=== PATIENT | female | born 1995 | race Caucasian/White ===

== ENCOUNTER → 2020-06-17 12:31 | Outpatient (CLI) | payer BC, SELFPAY ==
[2020-06-17 10:28] VITALS: BMI 27.5
[2020-06-19 03:07] LABS: Chlamydia By Nucleic Acid AMP Negative (Negative)
[2020-06-19 08:42] LABS: Gonococcus By Nucleic Acid AMP Negative (Negative)
[2020-06-19 20:49] LABS: HPV Reflexed? NOT INDICATED
== END ==
PROVIDERS: PCP Family Medicine; Referring Provider Nurse Practitioner Women's Health; Visit Provider Nurse Practitioner Women's Health
DX: N94.9 Unspecified condition associated with female genital organs and menstrual cycle (principal); Z12.4 Encounter for screening for malignant neoplasm of cervix; Z11.3 Encounter for screening for infections with a predominantly sexual mode of transmission
CPT/HCPCS: 87070; 87205; 87491; 87591; 88175; G0145

== ENCOUNTER → 2024-01-01 | Outpatient (CLI) | payer MEDICAID, SELFPAY ==
[2024-01-01 15:55] LABS: Absolute Lymphocyte Count 2.01 X10^3/uL (0.83-4.51); Absolute Neutrophil Count 9.9 X10^3/uL (2.0-7.7); Basophil# 0.03 X10^3/uL; Basophil% 0.2 % (0-1); Eosinophil# 0.11 X10^3/uL; Eosinophils% 0.9 % (0-5); Hematocrit 34.1 % (37-47); Hemoglobin 11.2 g/dL (12.0-15.0); Lymphocyte # 2.01 X10^3/ul (0.83-4.51); Lymphocyte % 15.6 % (19-41); Mean Corp Hgb Conc 32.8 g/dL (32-36); Mean Corpuscular Volume 82.2 fL (81-99); Mean Platelet Vol. 10.6 fl (6.2-12.0); Monocyte# 0.81 X10^3/uL; Monocyte% 6.3 % (0-10); NRBC Flagged by Analyzer 0 % (0-5); Neutrophil # 9.85 X10^3/uL (2.7-7.7); Neutrophil % 76.4 % (47-70); Platelet Count 279 K/mm3 (150-450); RBC Distribution Width CV 12.8 % (11.6-14.6); RBC Distribution Width SD 38.1 fl (35.1-43.9); Red Blood Count 4.15 M/mm3 (4.2-5.4); White Blood Count 12.9 K/mm3 (4.4-11.0)
[2024-01-01 16:23] LABS: ALB/GLOB Ratio 0.7 RATIO (0.9-2.4); AST(SGOT) 13 U/L (15-37); Alanine Aminotransfer ALT/SGPT 20 U/L (13-56); Albumin, Serum 2.7 g/dL (3.2-5.0); Alkaline Phosphatase 67 U/L (45-117); Anion Gap 14 (5-15); BUN 7 mg/dL (7-18); BUN/Creat Ratio 14.7 RATIO (10-20); Calcium,Total 9.1 mg/dL (8.5-10.1); Chloride 106 mmol/L (98-107); Creatinine, Serum 0.48 mg/dL (0.55-1.02); EST Glomerular Filtration Rate 163 mL/min (>60); Est Glom Filt Rate - Afr Amer 198 mL/min (>60); Glucose 114 mg/dL (74-106); Potassium 3.3 mmol/L (3.5-5.1); Protein, Total 6.7 g/dL (6.4-8.2); Sodium Level 137 mmol/L (136-145); Uric Acid 3.7 mg/dL (2.6-6.0)
[2024-01-01 17:16] LABS: Protein, Urine (Random) 6.2 mg/dL (<11.9); Protein:Creat Ratio 302 mg/g CRE (0-200)
== END | disposition home or self-care (01) ==
LOC: BWCLAB 15:29
PROVIDERS: PCP Family Medicine; Referring Provider Advanced Practice Midwife; Visit Provider Advanced Practice Midwife
DX: O13.9 Gestational [pregnancy-induced] hypertension without significant proteinuria, unspecified trimester (principal)
CPT/HCPCS: 36415; 80053; 82570; 84156; 84550; 85025

== ENCOUNTER → 2024-01-02 | Outpatient (CLI) | payer MEDICAID, SELFPAY | END | disposition home or self-care (01) | LOC: US 10:12 | PROVIDERS: PCP Family Medicine; Referring Provider Obstetrics & Gynecology; Visit Provider Obstetrics & Gynecology | DX: O13.9 Gestational [pregnancy-induced] hypertension without significant proteinuria, unspecified trimester (principal); O09.90 Supervision of high risk pregnancy, unspecified, unspecified trimester | CPT/HCPCS: 36415; 76816; 80053; 82570; 84156; 85025 ==

== ENCOUNTER → 2024-01-02 | Outpatient (CLI) | payer MEDICAID, SELFPAY ==
[2024-01-02 10:20] LABS: Absolute Lymphocyte Count 1.95 X10^3/uL (0.83-4.51); Absolute Neutrophil Count 9.3 X10^3/uL (2.0-7.7); Basophil# 0.03 X10^3/uL; Basophil% 0.3 % (0-1); Eosinophil# 0.13 X10^3/uL; Eosinophils% 1.1 % (0-5); Hemoglobin 11.2 g/dL (12.0-15.0); Lymphocyte # 1.95 X10^3/ul (0.83-4.51); Lymphocyte % 16.3 % (19-41); Mean Corpuscular Hgb 26.6 pg (27.0-32.0); Mean Corpuscular Volume 83.1 fL (81-99); Mean Platelet Vol. 10.2 fl (6.2-12.0); Monocyte% 4.2 % (0-10); NRBC Flagged by Analyzer 0 % (0-5); Neutrophil # 9.28 X10^3/uL (2.7-7.7); Neutrophil % 77.5 % (47-70); Platelet Count 270 K/mm3 (150-450); RBC Distribution Width CV 12.7 % (11.6-14.6); RBC Distribution Width SD 38.5 fl (35.1-43.9); Red Blood Count 4.21 M/mm3 (4.2-5.4)
[2024-01-02 10:49] LABS: ALB/GLOB Ratio 0.7 RATIO (0.9-2.4); AST(SGOT) 10 U/L (15-37); Alanine Aminotransfer ALT/SGPT 20 U/L (13-56); Albumin, Serum 2.7 g/dL (3.2-5.0); Alkaline Phosphatase 68 U/L (45-117); Anion Gap 8 (5-15); BUN 4 mg/dL (7-18); BUN/Creat Ratio 7.1 RATIO (10-20); Calcium,Total 8.8 mg/dL (8.5-10.1); Chloride 106 mmol/L (98-107); Creatinine, Serum 0.56 mg/dL (0.55-1.02); EST Glomerular Filtration Rate 134 mL/min (>60); Est Glom Filt Rate - Afr Amer 162 mL/min (>60); Globulin 4.1 g/dL (2.2-4.2); Glucose 143 mg/dL (74-106); Potassium 3.2 mmol/L (3.5-5.1); Protein, Total 6.8 g/dL (6.4-8.2); Sodium Level 137 mmol/L (136-145)
[2024-01-02 11:02] LABS: Protein, Urine (Random) 11.4 mg/dL (<11.9); Protein:Creat Ratio 253 mg/g CRE (0-200)
== END | disposition home or self-care (01) ==
LOC: BWCLAB 10:00
PROVIDERS: PCP Family Medicine; Referring Provider Obstetrics & Gynecology; Visit Provider Obstetrics & Gynecology
DX: O13.9 Gestational [pregnancy-induced] hypertension without significant proteinuria, unspecified trimester (principal)
CPT/HCPCS: 36415; 80053; 82570; 84156; 85025

== ENCOUNTER → 2024-01-15 | Outpatient (CLI) | payer MEDICAID, SELFPAY ==
[2024-01-15 13:01] LABS: Creatinine, Serum 0.44 mg/dL (0.55-1.02); EST Glomerular Filtration Rate 179 mL/min (>60); Est Glom Filt Rate - Afr Amer 217 mL/min (>60)
[2024-01-15 13:02] LABS: 24HR. UA Prot. Total Volume 3500 mL; Creat.Clear Total Volume 3500 mL; Creatinine Clearance 175 ml/min (100-200); Creatinine Serum Creat 0.4 mg/dL (0.6-1.0); Creatinine Urine 31.5 mg/dL (NO RANGE EST.); EST Glomerular Filtration Rate 179 mL/min (>60); Est Glom Filt Rate - Afr Amer 217 mL/min (>60); Urine Protein (24 Hour) 8.4 mg/dL (<11.9)
== END | disposition home or self-care (01) ==
LOC: LABSPEC 10:29
PROVIDERS: Obstetrics & Gynecology; PCP Family Medicine; Referring Provider Obstetrics & Gynecology; Visit Provider Obstetrics & Gynecology
DX: O13.9 Gestational [pregnancy-induced] hypertension without significant proteinuria, unspecified trimester (principal); Z3A.00 Weeks of gestation of pregnancy not specified
CPT/HCPCS: 81050; 82565; 82570; 82575; 84156

== ENCOUNTER → 2024-02-01 | Outpatient (CLI) | payer MEDICAID, SELFPAY ==
[2024-02-01 17:05] LABS: Absolute Lymphocyte Count 1.91 X10^3/uL (0.83-4.51); Absolute Neutrophil Count 8.2 X10^3/uL (2.0-7.7); Basophil# 0.03 X10^3/uL; Basophil% 0.3 % (0-1); Eosinophil# 0.12 X10^3/uL; Eosinophils% 1.1 % (0-5); Hematocrit 35.4 % (37-47); Hemoglobin 11.3 g/dL (12.0-15.0); Lymphocyte # 1.91 X10^3/ul (0.83-4.51); Lymphocyte % 17.3 % (19-41); Mean Corp Hgb Conc 31.9 g/dL (32-36); Mean Corpuscular Hgb 25.9 pg (27.0-32.0); Mean Corpuscular Volume 81.2 fL (81-99); Monocyte# 0.69 X10^3/uL; Monocyte% 6.2 % (0-10); NRBC Flagged by Analyzer 0 % (0-5); Neutrophil # 8.23 X10^3/uL (2.7-7.7); Neutrophil % 74.5 % (47-70); Platelet Count 276 K/mm3 (150-450); RBC Distribution Width CV 13.1 % (11.6-14.6); RBC Distribution Width SD 38.7 fl (35.1-43.9); Red Blood Count 4.36 M/mm3 (4.2-5.4); White Blood Count 11.1 K/mm3 (4.4-11.0)
[2024-02-01 17:15] LABS: Glucose Challenge Gest 1H 50g 118 mg/dL (70-140)
[2024-02-01 17:51] LABS: HIV - WCH Non-Reactive (Nonreactive); Syphilis Antibodies Non-reactive
== END | disposition home or self-care (01) ==
LOC: BWCLAB 14:05
PROVIDERS: PCP Family Medicine; Referring Provider Obstetrics & Gynecology; Visit Provider Obstetrics & Gynecology
DX: O26.899 Other specified pregnancy related conditions, unspecified trimester (principal); Z67.91 Unspecified blood type, Rh negative; Z13.1 Encounter for screening for diabetes mellitus; Z3A.00 Weeks of gestation of pregnancy not specified
CPT/HCPCS: 36415; 82950; 85025; 86703; 86780; 86850; 86900; 86901

== ENCOUNTER → 2024-02-20 | Outpatient (CLI) | payer MEDICAID, SELFPAY ==
--- NOTE | 2024-02-20 13:45 | ECHOD_ITS ---
Reason For Study: HYPERTENSION Procedure This was a 2D Doppler, Color Flow transthoracic echocardiogram. Myocardial strain analysis was performed in this exam to aid in the assessment of cardiac function. Exam performed in department. Left Ventricle Normal LV size. Left ventricular systolic function is normal. The left ventricular ejection fraction is 60 %. No regional wall motion abnormalities noted. Right Ventricle Normal RV size. Normal systolic function. Atria Normal left atrium. Normal right atrium. Mitral Valve Normal mitral valve. Tricuspid Valve Normal tricuspid valve. Mild tricuspid valve insufficiency. Pulmonary artery systolic pressure is 25 mmHg. Aortic Valve Trisinus/trileaflet aortic valve. Pulmonic Valve Normal pulmonic valve. Great Vessels Normal aortic root. The pulmonary artery is normal size. Inferior vena cava collapse with respiration. Pericardium/Pleural No pericardial effusion. MMode/2D Measurements & Calculations LVIDd: 4.3 cm IVSd: 0.88 cm LVOT diam: 1.9 cm LVIDs: 3.0 cm LVPWd: 0.89 cm LVOT area: 2.7 cm2 RVDd: 3.2 cm FS: 31.5 % asc Aorta Diam: 2.4 cm LAV(MOD-bp): 40.4 ml LVAd ap4: 25.6 cm2 LAV(MOD-bp) Indexed: 21.6 ml/m2 LVLd ap4: 8.3 cm LAV(MOD-sp2): 48.1 ml EDV(MOD-sp4): 64.3 ml LAV(MOD-sp4): 33.0 ml EDV(sp4-el): 67.5 ml LVAs ap4: 12.7 cm2 LVLs ap4: 6.5 cm ESV(MOD-sp4): 21.3 ml ESV(sp4-el): 21.2 ml EF(MOD-sp4): 66.8 % EF(sp4-el): 68.6 % LVAd ap2: 26.6 cm2 SV(MOD-sp4): 42.9 ml SV(MOD-sp2): 44.4 ml LVLd ap2: 8.2 cm SI(MOD-sp4): 23.0 ml/m2 SI(MOD-sp2): 23.8 ml/m2 EDV(MOD-sp2): 70.2 ml EDV(sp2-el): 72.9 ml LVAs ap2: 14.1 cm2 LVLs ap2: 6.3 cm ESV(MOD-sp2): 25.8 ml ESV(sp2-el): 26.5 ml EF(MOD-sp2): 63.2 % SV(sp4-el): 46.3 ml Ao sinus diam: 2.[address] Junction: 2.1 cm LA dimension(2D): 3.7 cm LA A4 area: 14.1 cm2 RA A4 area: 8.8 cm2 TAPSE: 1.8 cm Time Measurements MV dec time: 0.16 sec Doppler Measurements & Calculations MV E max madhu: 74.3 cm/sec Lat Peak E' Madhu: 17.2 cm/sec Med Peak E' Madhu: 11.2 cm/sec MV A max madhu: 84.3 cm/sec E/E' lat: 4.3 E/E' med: 6.7 MV E/A: 0.88 MV dec slope: 469.6 cm/sec2 Ao V2 max: 191.0 cm/sec LV V1 max: 147.4 cm/sec Ao max P.6 mmHg LV V1 max P.7 mmHg Ao V2 mean: 132.5 cm/sec LV V1 mean P.1 mmHg Ao mean P.8 mmHg LV V1 mean: 108.9 cm/sec Ao V2 VTI: 27.0 cm LV V1 VTI: 22.2 cm AV (velocity ratio): 0.82 KARLA(I,D): 2.2 cm2 KARLA(V,D): 2.1 cm2 SV(LVOT): 60.1 ml PA V2 max: 118.0 cm/sec TR max madhu: 238.6 cm/sec TR max P.8 mmHg ECHO/Echo Complete Interpretation Summary Normal LV size. Left ventricular systolic function is normal. The left ventricular ejection fraction is 60 %. Structurally normal valves. Ordering Physician: Ben Tejeda Referring Physician: Ben Tejeda MD Performed By: Tiffany Bird GARY
== END | disposition home or self-care (01) ==
LOC: CVS 13:44
PROVIDERS: PCP Family Medicine; Referring Provider Internal Medicine Cardiovascular Disease; Visit Provider Internal Medicine Cardiovascular Disease
DX: O10.919 Unspecified pre-existing hypertension complicating pregnancy, unspecified trimester (principal); Z3A.00 Weeks of gestation of pregnancy not specified
CPT/HCPCS: 93306

== ENCOUNTER 2024-03-04 20:05 | Outpatient (CLI) | payer MEDICAID, SELFPAY ==
[2024-03-04 20:18] VITALS: BMI 38.5
[2024-03-04 20:23] VITALS: PULSE 111; RESP 16; TEMP 37; O2SAT 98
[2024-03-04 20:26] VITALS: BP 138/85; PULSE 103
--- NOTE | 2024-03-04 22:54 | OB.TRI.PN_ITS ---
Progress Notes Date of Service: 03/04/24 Progress Note: Patient presents for triage evaluation secondary to decreased movement at 32.6 weeks FHT: 145 Moderate variability reactive no decelerations category I tracing [employer]: no Contractions Assessment and plan: movement noted by patient and nursing, Reactive NST, reassuring maternal and status patient discharged to home to follow-up as scheduled. See problem list details for additional plan information. Charges/Coding Multi Select Codes Urinary/Genital Urinary/Genital CPT Codes: 06017-72 non-stress test Interp Assessment & Plan (1) Decreased movement: COMMENT: reactive NST, FM noted on unit by pt, d/c home (2) Abnormal EKG: COMMENT: normal echo (3) Chronic hypertension affecting : COMMENT: on nifedipine (4) Obesity affecting : COMMENT: BMI 31.2- growth q 4 weeks and twice weekly testing (5) Supervision of high-risk : COMMENT: , ROSE 04/23/24, PC: Guillermo, : Johnathan (6) : QUALIFIERS: Weeks of gestation: 32 weeks Qualified Code(s): Z3A.32 - 32 weeks gestation of COMMENT: normal anatomy, NT normal, AFP normal, Discussed genetic/carrier testing - declines (7) Rh negative status during : COMMENT: A-, Will need Rhogam at 28wks (8) H/O pre-eclampsia in prior , currently : COMMENT: Taking ASA 81mg (9) Anxiety: (10) H/O section: COMMENT: x1, Desires rpt csec with sterilization. RLTCS BS scheduled for 04/04 @ 7:15 with SM (11) Migraine without aura: QUALIFIERS: Status migrainosus presence: without status migrainosus Intractability: not intractable Qualified Code(s): G43.009 - Migraine without aura, not intractable, without status migrainosus
== END 2024-03-04 21:05 | disposition home or self-care (01) ==
LOC: WPOUT 20:09 → WP 20:10
PROVIDERS: PCP Family Medicine; Visit Provider Advanced Practice Midwife
DX: O36.8130 Decreased fetal movements, third trimester, not applicable or unspecified (principal); Z3A.32 32 weeks gestation of pregnancy; R94.31 Abnormal electrocardiogram [ECG] [EKG]; O16.3 Unspecified maternal hypertension, third trimester; O99.213 Obesity complicating pregnancy, third trimester; O26.893 Other specified pregnancy related conditions, third trimester
CPT/HCPCS: 59025; 59050; 99221; G0378

== ENCOUNTER → 2024-03-28 | Outpatient (CLI) | payer MEDICAID, SELFPAY ==
[2024-03-28 15:04] LABS: Protein:Creat Ratio 373 mg/g CRE (0-200)
== END | disposition home or self-care (01) ==
LOC: LABSPEC 14:43
PROVIDERS: PCP Family Medicine; Referring Provider Obstetrics & Gynecology; Visit Provider Obstetrics & Gynecology
DX: O10.919 Unspecified pre-existing hypertension complicating pregnancy, unspecified trimester (principal); Z3A.00 Weeks of gestation of pregnancy not specified
CPT/HCPCS: 82570; 84156; 87081

== ENCOUNTER 2024-04-04 05:27 | Inpatient (IN) | payer MEDICAID, SELFPAY ==
--- NOTE | 2024-04-01 17:32 | HP.PCM_ITS ---
History and Physical Date of Admission: 04/02/24 Intake Visit Reasons: 36 wk ob/nst Supervisor Plastering Required: No Is patient in pain?: No Allergies No Known Allergies Allergy (Verified 03/28/24 10:55) Medications ?Medication ?Instructions ?Recorded ?Confirmed ?Type docosahexaenoic acid 200 mg 1 mg PO 12/29/23 03/28/24 History capsule ( DHA) magnesium oxide 500 mg capsule 400 mg PO QHS 01/18/24 03/28/24 History aspirin 81 mg tablet,delayed 81 mg PO QDAY #30 tabs 01/25/24 03/28/24 Rx release (Adult Aspirin Regimen) escitalopram oxalate 10 mg tablet 10 mg PO DAILY #30 tabs 01/25/24 5 Rx nifedipine 60 mg tablet,extended 60 mg PO QDAY #30 tabs 01/25/24 03/28/24 Rx release breast pump #1 ea 03/01/24 03/28/24 Rx Last Menstrual Period: 07/18/23 Zika: Zika virus screening: Negative : No PFSH PFSH Medical History Abnormal EKG Chronic hypertension affecting Anxiety Acne History of pre-eclampsia Surgical History S/P Social History adopted: No household members: spouse and children number of children: 1 current occupational status: unemployed current occupation: [employer] current occupational exposures/hazards: No pets and animals: No history of recent travel: Yes (Moved from [place] in Dec 2023) out of state: Yes sexually active: Yes Smoking Status: Never smoker alcohol intake: never substance use type: does not use well-balanced diet: about half the time caffeine: No eating out: rarely or never during the past year weight has: remained stable seatbelt use: always do you feel safe at home: Yes additional social history: - Johnathan: History 2 Elective abortions Hx Para 1 Spontaneous abortions Hx # Term Pregnancies Ectopic pregnancies Hx # Pregnancies Multiple births # of living children 1 Past Pregnancies Del. Date Name GA/Weeks Outcome Route Bth Weight Gen Labor Lgth Anesthesia Del Locatn Provider FOB 10/11/18 Guillermo 41 live - full term 8lbs 4oz Mal e 12 epidural [place] Julia Mann Delivery Date: 10/11/18 Last Updated by: Denise Medina RN Induced d/t postdates, pre-e, low fluid...Csec d/t not progressing & distress HPI 36 wk ob/nst Details: LYNDON NORTON is a 28 year old who presents for RLTCS OB Visit ROSE Calculator Estimated Delivery Date Method Current WG Current Estimate 04/23/24 LMP (Certain) 36w 2d Expected Delivery Route/Plan repeat C/S Specific Issue/Plans Covid status: [] Flu vaccine: [] Tdap vaccine: [] Rhogam: [] LARC form signed: [] Problem list reviewed and updated with the most current plan of care details and appropriate orders placed. Relevant counseling for the gestational age provided. Continue routine care and follow up unless otherwise noted in visit notes/problem list details Initial Weight: Not Recorded Date -?-?-?-?-?-?-?-?-?-?-?-?- EGA Weight BP Urine Prot -?-?-?-?-?-?-?-?-?-?-?-?- Glucose FHR FuHt Pres Dilation -?-?-?-?-?-?-?-?-?-?-?-?- Effaced St Visit Note 01/01/24-?-?-?-?-?-?-?-?-?-?-?-?- 23w 6d 193 lb 141/86 Negative -?-?-?-?-?-?-?-?-?-?-?-?- Negative 140 24 -?-?-?-?-?-?-?-?-?-?-?-?- KW- NANCY from [place]. records requested. Had prior C/S. desires repeat. Hx migrai quincy. On nifedipine already for HTN-started 12/08. Had anatomy US and pt reports all was normal. pre e labs today for elevated BP and headache. MFM consult placed for BP. Discussed BPs with SM and plan to increase nifedipine and return to office in one week. 01/02/24-?-?-?-?-?-?-?-?-?-?-?-?- 24w 0d 191 lb 8 oz 131/85 -?-?-?-?-?-?-?-?-?-?-?-?- -?-?-?-?-?-?-?-?-?-?-?-?- JV- pt here for nurse visit. bp is improved from yesterday, prot:cr is improved and now 250. labs are stable 01/09/24-?-?-?-?-?-?-?-?-?-?-?-?- 25w 0d 193 lb 134/85 Negative -?-?-?-?-?-?-?-?-?-?-?-?- Negative 145 -?-?-?-?-?-?-?-?-?-?-?-?- SM- no vb lof good fm no regular ctx reviewed bps and mostly within goal reviewed indications to call SM- no vb lof good fm no regular ctx reviewed bps and mostly within goal reviewed indications to call schedule cs for 37 weeks and wants sterilizaiton also title 19 signed 01/25/24-?-?-?-?-?-?-?-?-?-?-?-?- 27w 2d 194 lb 6 oz 133/85 Negative -?-?-?-?-?-?-?-?-?-?-?-?- Negative 145 -?-?-?-?-?-?-?-?-?-?-?-?- SM- no vb lof good fm nroe gualr ctx 02/01/24-?-?-?-?-?-?-?-?-?-?-?-?- 28w 2d 195 lb 118/81 Negative -?-?-?-?-?-?-?-?-?-?-?-?- Negative 145 28 -?-?-?-?-?-?-?-?-?-?-?-?- JV- no lof, vaginal bleeding or dec fm. gct done today. rhogam and tdap to be done before she leaves today. 02/15/24-?-?-?-?-?-?-?-?-?-?-?-?- 30w 2d 195 lb 6 oz 127/83 Negative -?-?-?-?-?-?-?-?-?-?-?-?- Negative 135 -?-?-?-?-?-?-?--?-?-?-?-?- KW- NST today reactive. no vb/lof/ctx. good fm. KW- NST today reactive. no vb/lof/ctx. good fm. LARC today. BPs controlled 02/22/24-?-?-?-?-?-?-?-?-?-?-?-?- 31w 2d 198 lb 8 oz 123/76 Negative -?-?-?-?-?-?-?-?-?-?-?-?- Negative 135 -?-?-?-?-?-?-?-?-?-?-?-?- KW-NST only reactive 03/01/24-?-?-?-?-?-?-?-?-?-?-?-?- 32w 3d 199 lb 135/87 Negative -?-?-?-?-?-?-?-?-?-?-?-?- Negative 140 32 -?-?-?-?-?-?-?-?-?-?-?-?- JV- nst reactive. pt states that her scar hurts when she rolls from side to side in bed. has us next week. no contractions. scar on fascia could be felt today. 03/08/24-?-?-?-?-?-?-?--?-?-?-?-?- 33w 3d 200 lb 4 oz 135/86 Negative -?-?-?-?-?-?-?-?-?-?-?-?- Negative 140 -?-?-?-?-?-?-?-?-?-?-?-?- KW-NST only. reactive 03/15/24-?-?-?-?-?-?-?-?-?-?-?-?- 34w 3d 202 lb 6 oz 129/88 Negative -?-?-?-?-?-?-?-?-?-?-?-?- Negative 140 -?-?-?-?-?-?-?-?-?-?-?-?- SM- no vb lof good fm no reg ctx 03/21/24-?-?-?-?-?-?-?-?-?-?-?-?- 35w 2d 202 lb 6 oz 138/86 Negative -?-?-?-?-?-?-?-?-?-?-?-?- Negative 135 -?-?-?-?-?-?-?-?-?-?-?-?- KW- NST only. reactive 03/28/24-?-?-?-?-?-?-?-?-?-?-?-?- 36w 2d 205 lb 8 oz 132/92 Negative -?-?-?-?--?-?-?-?-?-?-?-?- Negative 140 -?-?-?-?-?-?-?-?-?-?-?-?- JV- NST reactive. has rpt section next week. gbs collected and consent signed. ACOG First Trimester First Trimester: Discussed Second Trimester Second Trimester: Signs and Symptoms of Labor, Selecting a care provider, Reproductive Life Planning & Contreception, Care Planning, Depression/Anxiety and Intimate Partner Violence; Discussed Tobacco Cessation Third Trimester Third Trimester: Pain Management Plans, Labor support person(s), Immediate Larc, Movement Monitoring, Signs and Symptoms of Preeclampsia and Education Office Procedures Non-stress Test Non-Stress Test Indications for Monitoring: Yes hypertension Heart Rate Baseline: 140 Heart Rate Variability: moderate Movement: Present Heart Rate Accelerations: Present Decelerations: Absent Contractions: Absent Impression: Yes Reactive Non-Stress Test Results POC Urinalysis 2 Dip (Clinic) Office Urine Glucose Negative Last Edit by Khushbu Almanzar on 03/28/24 11:24 Office Urine Protein Negative Last Edit by Khushbu Almanzar on 03/28/24 11:24 ROS Const Reports system reviewed and no additional complaints, except as documented Card Reports system reviewed and no additional complaints, except as documented Resp Reports system reviewed and no additional complaints, except as documented GI Reports system reviewed and no additional complaints, except as documented, Reports nausea Reports system reviewed and no additional complaints, except as documented Musc Reports system reviewed and no additional complaints, except as documented all other systems reviewed and negative Exam Const General: cooperative, healthy appearing, comfortable HENMT Head: normal to inspection Nose: external nose normal Face and sinus: normal facial exam Neck Neck: normal visual inspection, full ROM, no lymphadenopathy Thyroid: thyroid normal Chest Chest palpation & inspection: normal inspection of the chest Resp Effort & Inspection: normal respiratory effort GI Inspection: normal to inspection Palpation: soft, other (gravid uterus) Other: vertex and appropriate size for gestational age Other: Cervical Exam: [ ] Extrem General: pedal edema Coding Level of Care Code OB Routine Diagnoses Decreased movement O36.8190 Abnormal EKG R94.31 Chronic hypertension affecting O10.919 Obesity affecting O99.210 Supervision of high-risk O09.90 36 weeks gestation of Z3A.36 Weeks of gestation: 36 weeks Rh negative status during O26.899; Z67.91 H/O pre-eclampsia in prior , currently O09.299 Anxiety F41.9 H/O section Z98.891 Migraine without aura and without status migrainosus, not intractable G43.009 Intractability: not intractable Status migrainosus presence: without status migrainosus CPT Codes Non-Stress Test (64428) Assessment and Plan Assessment and Plan (1) Decreased movement: Status: Acute Comment: reactive NST, FM noted on unit by pt, d/c home (2) Abnormal EKG: Status: Acute Comment: normal echo (3) Chronic hypertension affecting : Status: Chronic Comment: on nifedipine (4) Obesity affecting : Status: Acute Comment: BMI 31.2- growth q 4 weeks and twice weekly testing - one can be an NST and one bpp. growth shows AC 97th% 02/29/24 (5) Supervision of high-risk : Status: Acute Comment: , ROSE 04/23/24, PC: Guillermo, : Johnathan (6) : Status: Acute Qualifiers: Weeks of gestation: 36 weeks Qualified Code(s): Z3A.36 - 36 weeks gestation of Comment: normal anatomy, NT normal, AFP normal, Discussed genetic/carrier testing - declines (7) Rh negative status during : Status: Acute Comment: A-, Will need Rhogam at 28wks (8) H/O pre-eclampsia in prior , currently : Status: Acute Comment: Taking ASA 81mg (9) Anxiety: Status: Acute (10) H/O section: Status: Acute Comment: x1, Desires rpt csec with sterilization. RLTCS BS scheduled for 04/04 @ 7:15 with SM - POSSIBLE VICRYL ALLERGY. PLEASE ONLY USE MONOCRYL. (11) Migraine without aura: Status: Acute Qualifiers: Intractability: not intractable Status migrainosus presence: without status migrainosus Qualified Code(s): G43.009 - Migraine without aura, not intractable, without status migrainosus Orders: Orders plan RLTCS POC Urinalysis 2 Dip (Clinic) Today OB NST Today O99.210 - Obesity complicating , unspecified trimester Culture, Group B Streptococcus Today O09.90 - Supervision of high risk , unspecified, unspecified trimester Protein+Creatinine Ratio,Urine Today O10.919 - Unspecified pre-existing hypertension complicating , unspecified trimester Assessment & Plan Assessment/Plan (1) Pre-eclampsia added to pre-existing hypertension: (2) Obesity affecting : (3) Supervision of high-risk : (4) : QUALIFIERS: Weeks of gestation: 36 weeks Qualified Code(s): Z3A.36 - 36 weeks gestation of (5) Rh negative status during : (6) H/O section: (7) Chronic hypertension affecting : PLAN: Plan RLTCS UPDATE- I have seen the patient and performed any clinically relevant updates to the history and physical exam. Janine Romero MD
[2024-04-04] VITALS (19 sets, daily range): BP systolic 113–140; BP diastolic 68–89; PULSE 82–130; RESP 14–20; TEMP 36.3–36.9; O2SAT 97–100; BMI 39.6
[2024-04-04] MEDS: Lactated Ringers 1,000 ML 999 ML IV (05:45)
[2024-04-04] MEDS: Acetaminophen 500 MG Tablet 1000 MG PO ×3 (06:12→18:35)
[2024-04-04 06:13] LABS: Absolute Lymphocyte Count 2.71 X10^3/uL (0.83-4.51); Absolute Neutrophil Count 7.8 X10^3/uL (2.0-7.7); Basophil# 0.03 X10^3/uL; Basophil% 0.3 % (0-1); Eosinophil# 0.11 X10^3/uL; Hematocrit 34.8 % (37-47); Hemoglobin 11.3 g/dL (12.0-15.0); Lymphocyte # 2.71 X10^3/ul (0.83-4.51); Lymphocyte % 23.7 % (19-41); Mean Corp Hgb Conc 32.5 g/dL (32-36); Mean Corpuscular Hgb 25.6 pg (27.0-32.0); Mean Corpuscular Volume 78.9 fL (81-99); Monocyte# 0.75 X10^3/uL; Monocyte% 6.6 % (0-10); NRBC Flagged by Analyzer 0 % (0-5); Neutrophil # 7.78 X10^3/uL (2.7-7.7); Platelet Count 239 K/mm3 (150-450); RBC Distribution Width CV 15.4 % (11.6-14.6); RBC Distribution Width SD 43.8 fl (35.1-43.9); Red Blood Count 4.41 M/mm3 (4.2-5.4); White Blood Count 11.4 K/mm3 (4.4-11.0)
[2024-04-04] MEDS: Lactated Ringers 1,000 ML 150 ML IV (07:00)
[2024-04-04] MEDS: Sodium Citrate/Citric Acid 30 ML UDC PO (07:01)
--- NOTE | 2024-04-04 07:17 | EX.PCM.OBRPT ---
Assessment & Plan (1) delivery delivered: COMMENT: RLTCS chtn pree SM 37 (2) Pre-eclampsia added to pre-existing hypertension: (3) Decreased movement: COMMENT: reactive NST, FM noted on unit by pt, d/c home (4) Obesity affecting : COMMENT: BMI 31.2- growth q 4 weeks and twice weekly testing - one can be an NST and one bpp. growth shows AC 97th% 02/29/24 (5) Supervision of high-risk : COMMENT: , ROSE 04/23/24, PC: Guillermo, : Johnathan (6) : QUALIFIERS: Weeks of gestation: 36 weeks Qualified Code(s): Z3A.36 - 36 weeks gestation of COMMENT: GBS negative. normal anatomy, NT normal, AFP normal, Discussed genetic/carrier testing - declines (7) Rh negative status during : COMMENT: A-, Will need Rhogam at 28wks (8) H/O pre-eclampsia in prior , currently : COMMENT: Taking ASA 81mg (9) H/O section: COMMENT: x1, Desires rpt csec with sterilization. RLTCS BS scheduled for 04/04 @ 7:15 with SM - POSSIBLE VICRYL ALLERGY. PLEASE ONLY USE MONOCRYL. (10) Abnormal EKG: COMMENT: normal echo (11) Chronic hypertension affecting : COMMENT: on nifedipine Maternal Data Information ROSE Calculator Estimated Delivery Date Method Current WG Current Estimate 04/23/24 LMP (Certain) 37w 3d Final ROSE Source: LMP Operative Report (OB) Cecarean Details Procedure Type: low transverse Date of Procedure: 04/04/24 Procedure Start Time: 07:36 Procedure Stop Time: 08:12 Pre-Operative Diagnosis: Other Other Pre-Operative diagnosis: see a/p comments Post-Operative Diagnosis: Same as Pre-operative diagnosis Classification: Scheduled Type of Anesthesia: Spinal Special Medications: none Antibiotic Given: Ancef 2 grams IV x1 Drain: Yanez to straight drain Estimated Blood Loss: 500 Fluids Replaced: crystalloid Findings Description of surgery: Spinal anesthesia was placed without difficulty. Yanez catheter was placed. The patient was placed in the dorsal supine position with leftward tilt. Patient was prepped and draped in the normal sterile fashion. Pfannenstiel skin incision was made with the scalpel and carried through to the underlying layer of fascia with the scalpel. Fascia was nicked in the midline and the incision extended laterally. The rectus bellies were dissected off superiorly and inferiorly with out complication both sharply and bluntly. The peritoneum was entered digitally. The incision was stretched and a low transverse uterine incision was made with the scalpel. The infant's head was delivered atraumatically followed by the anterior and posterior shoulders without complication the rest of the infant delivered. The cord was clamped and cut and the infant was handed off to awaiting nurse. The placenta was delivered spontaneously immediately following and was noted to be intact and have a three-vessel cord. The uterus was exteriorized cleared of all clots and debris, and the incision was closed in a single layer closure using #1 Monocryl. The ovaries and fallopian tubes were noted to be within normal limits. Patient had desired sterilization and was counseled preoperatively regarding irreversibility and permanency. Therefore bilateral fallopian tubes were elevated and transected across using a LigaSure device starting proximally to distally without complication the entire fallopian tubes were removed. The uterus was returned to the maternal abdomen and gutters were cleared of all clots and debris. The peritoneum was closed with 3-0 Monocryl in a running fashion. Gloves were changed prior to fascial closure. Fascia was closed with 0 PDS in a running fashion. Subcutaneous tissue was copiously irrigated and the skin was closed with 3-0 Monocryl in a subcuticular fashion. Mepilex dressing was applied without complication. Patient was taken to recovery in stable condition. Surgical findings: n luterus tubes ovaries Presentation: Vertex Amniotic Membrane Rupture Type: Artificial Amniotic Fluid Description: Clear Specimen collected: Yes Description of specimen(s) removed: placenta and baby Cord Vessel Description: 3 Vessels Delayed Cord Clamping: Yes Human Resource Consultant leather parts matcher: Yes Dehairer: Dennis Crespo Tasks completed by first grade teacher: Opening & closing, Retracting and Other (assisting in delivery of the infant) Additional assistant professor surgical technology?: No Complications Complications: No Admit VTE Documentation VTE Present on Admission: No VTE Mechan Device Prophylaxis: SCD's Multi Select Codes Urinary/Genital Urinary/Genital CPT Codes: 47826 C/S+TL and 14970 delivery+PP Care([facility])
--- NOTE | 2024-04-04 07:18 | DCINST_ITS ---
Discharge Instructions Diet Discharge Diet: No restrictions DC O2, CPAP, BIPAP needs Home O2 Discharge instructions: No Dressing / Incision Discharge Activity: May Not Drive (for 2 weeks or while taking narcotic pain medications.), May Shower and May Take a Tub Bath (in 7 days) May shower in (days): 0 May resume sexual activity in: 4-6 weeks Weight Bearing Status: Full weight bearing Lifting Restrictions: 20 pounds Dressing / Incision Call your doctor if your incision/area has: Continuous Slow Oozing, Sudden Increased Bleeding, Increased Pain/ Swelling, Increased Redness and Foul Smelling Discharge Call your doctor if you observe: Fever of 101 or Higher and Using more than 1 pad per hour (for 2 hours) Suture Line Care: Avoid Pulling/Pushing and Avoid Pinching/Bending Cleanse incision/area with: Soap & Water and Keep Dressing Clean & Dry Follow Up Care Please Follow Up With: Janine Romero MD When: Call [phone] to make an appointment for an incision check in 1-2 weeks. Test Results: Test results from this visit will be discussed in further detail at your follow- up appointment, if applicable. Discharge Plan Admission Admit Date/Time: 04/04/24 05:27 Attending Provider: Janine Romero Primary Care Provider: Spencer Good Discharge Orders/Prescriptions Prescriptions: New oxycodone-acetaminophen [Endocet] 5-325 mg tablet 1 tab PO Q4H PRN (Reason: pain) 7 Days Qty: 20 0RF naproxen 500 mg tablet 500 mg PO BID PRN PRN (Reason: Pain) Qty: 30 1RF No Action DHA 200 mg capsule 1 mg PO magnesium oxide 500 mg capsule 400 mg PO QHS escitalopram oxalate 10 mg tablet 10 mg PO DAILY Qty: 30 12RF aspirin [Adult Aspirin Regimen] 81 mg tablet,delayed release (DR/EC) 81 mg PO QDAY Qty: 30 12RF nifedipine 60 mg tablet extended release 60 mg PO QDAY Qty: 30 12RF (DME) breast pump Device See Rx Instructions .ROUTE .MEDSUPPLY Qty: 1 0RF Rx Instructions: As directed Referrals / Follow Up: Spencer Good MD [Primary Care Provider] -
[2024-04-04] MEDS: Cefazolin 2 GM in Syringe IV (07:27)
[2024-04-04 08:02] LABS: Syphilis Antibodies Non-reactive
[2024-04-04] MEDS: Oxytocin 15 Units/NS 250ml 15 UNITS/250 ML IV.SOLN 83 UNITS IV (08:27)
[2024-04-04] MEDS: Ketorolac 30 MG/ML Syringe IV ×3 (08:44→20:02)
--- NOTE | 2024-04-04 10:33 | FALS_PTH ---
PATIENT: LYNDON NORTON LOC: [facility] U#:[id number] AGE/SX: 28/F ROOM: WP003 RE04/04/[address]: Dr. Janine Romero MD : 1995 BED: 1 DIS: 04/06/2024 SPEC #: [id number] RECD: 04/04/24 10:42 STATUS: DON VILLAGRAN #: [id number] TRA: 04/04/24 10:[address]: Janine Romero DEPT: SURGICAL PATHOLOGY RECD BY: Es Phillips ENTERED: 04/04/24 11:15 SP TYPE: FALL TUBES OTHR DR: Dr. Spencer Good MD Tissues: Fallopian tube Procedures: Surgery Specimen Level II HEADER OPERATION: Bilateral salpingectomy PRE-OP DIAGNOSIS: Other TISSUE SUBMITTED: Bilateral fallopian tubes MICROSCOPIC DIAGNOSIS Bilateral fallopian tubes, salpingectomy: Bilateral fallopian tubes, no pathologic diagnosis. SJ: 04/05/2024 MICROSCOPIC DESCRIPTION Slides are reviewed. GROSS DESCRIPTION Received in fixative is one container labeled with the patient's name and designated bilateral fallopian tubes- stitch on right. The specimen consists of bilateral fallopian tubes including fimbrial ends. Right fallopian tube measures 9 cm in length and up to 1 cm in diameter and left fallopian tube measures 8cm in length and up to 1cm in diameter. Sections reveal unremarkable cut surfaces. Band Scroll Saw Operator sections are submitted in two cassettes as follows: 1- right fallopian tube, 2- left fallopian tube. / LORRAINE: 04/04/2024 TC:4 CPT: 61223 x2
[2024-04-04] MEDS: 0.9% Saline Lock 10 ML Syringe IV ×2 (14:31→20:02)
[2024-04-04] MEDS: Enoxaparin 40 MG/0.4 ML Syringe SC (20:02)
[2024-04-04] MEDS: Magnesium Chloride 64 MG Delay Rel.Tablet 128 MG PO (22:02)
[2024-04-04] MEDS: Escitalopram Oxalate 10 MG Tablet PO (22:02)
[2024-04-05] MEDS: Acetaminophen 500 MG Tablet 1000 MG PO ×4 (00:31→18:47)
[2024-04-05 00:33] VITALS: BP 133/77; PULSE 92; RESP 16; TEMP 36.3; O2SAT 99
[2024-04-05] MEDS: Naproxen 500 MG Tablet PO ×3 (02:53→18:47)
[2024-04-05 03:00] VITALS: BP 142/96; PULSE 81; RESP 16; TEMP 36.5; O2SAT 99
[2024-04-05 06:44] LABS: Hematocrit 31.1 % (37-47); Hemoglobin 10.1 g/dL (12.0-15.0); Mean Corp Hgb Conc 32.5 g/dL (32-36); Mean Corpuscular Hgb 25.8 pg (27.0-32.0); Mean Corpuscular Volume 79.3 fL (81-99); Mean Platelet Vol. 11.8 fl (6.2-12.0); Platelet Count 197 K/mm3 (150-450); RBC Distribution Width CV 15.6 % (11.6-14.6); RBC Distribution Width SD 44.7 fl (35.1-43.9); Red Blood Count 3.92 M/mm3 (4.2-5.4)
--- NOTE | 2024-04-05 07:26 | PN.OBGYN_ITS ---
Subjective Subjective Patient doing well without complaints. Tolerating PO. Ambulating and voiding without difficulty. Feeding well. Denies chest pain, shortness of breath, calf pain/swelling, fevers, chills, lightheadedness. Objective Data Objective Data Vital Signs: Vital Signs Temp Pulse Resp BP Pulse Ox O2 Del Method 97.7 F L 81 16 142/96 H 99 Room Air 04/05/24 03:00 04/05/24 03:00 04/05/24 03:00 04/05/24 03:00 04/05/24 03:00 04/05/24 03:00 Oxygen Delivery Method Room Air Weight: 209 lb 12.8 oz Body Mass Index (BMI) 39.6 Intake & Output: Intake and Output for Last 24 Hours 04/03/24 04/04/24 04/05/24 23:59 23:59 23:59 Intake Total 3845 / 3845 Output Total 2500 / 2500 Balance 1345 / 1345 Lab / Micro Data Attestation: I reviewed the patient's lab results. 04/05/24 06:38 Labs: Laboratory Results - last 24 hr 04/04/24 05:45: Syphilis Total Ab Non-reactive, Blood Type A NEGATIVE, Antibody Screen NEGATIVE 04/05/24 06:38: WBC 11.0, RBC 3.92 L, Hgb 10.1 L, Hct 31.1 L, MCV 79.3 L, MCH 25.8 L, MCHC 32.5, RDW Std Deviation 44.7 H, RDW Coeff of Kacey 15.6 H, Plt Count 197, MPV 11.8 ROS Constitutional Constitutional: Reports systems reviewed and no addt'l complaints, except as documented; Denies anorexia or headache(s) Cardiovascular Cardiovascular: Reports systems reviewed and no addt'l complaints, except as documented; Denies dizziness, dyspnea, nausea or tachypnea Respiratory/Chest Respiratory/Chest: Reports systems reviewed and no addt'l complaints, except as documented; Denies cough, dyspnea, shortness of breath at rest or tachypnea Gastrointestinal Gastrointestinal: Reports systems reviewed and no addt'l complaints, except as documented; Denies abdominal pain, constipation or nausea Genitourinary Genitourinary: Reports systems reviewed and no addt'l complaints, except as documented; Denies burning urination, difficulty urinating, dysuria, urinary frequency or urinary incontinence Musculoskeletal Musculoskeletal: Reports systems reviewed and no addt'l complaints, except as documented Integumentary Integumentary: Reports systems reviewed and no addt'l complaints, except as documented Neurologic Neurologic: Reports systems reviewed and no addt'l complaints, except as documented; Denies abnormal speech, dizziness or headache(s) Psychiatric Psychiatric: Reports systems reviewed and no addt'l complaints, except as documented Endocrine Endocrinology: Reports systems reviewed and no addt'l complaints, except as documented Hematologic/Lymphatic Hematologic/Lymphatic: Reports systems reviewed and no addt'l complaints, except as documented Physical Exam Const alert, oriented x3 and no apparent distress Neck full ROM Resp normal respiratory effort, normal air movement and no retractions Effort and Inspection: able to speak in complete sentences and symmetric chest movement GI soft to palpation Inspection: incision intact Bladder / Kidney Exam: bladder normal to palpation Uterus Palpation: uterus fundus firm Extremity normal to inspection and full ROM Psych mental status grossly normal, thought process normal and cooperative Assessment & Plan (1) delivery delivered: COMMENT: RLTCS chtn pree SM 37 PLAN: s/p LTCS PPD # 1 1. routine post care 2. breast feeding- support given 3. rh positive 4. rubella immune (2) Pre-eclampsia added to pre-existing hypertension: (3) Obesity affecting : COMMENT: BMI 31.2- growth q 4 weeks and twice weekly testing - one can be an NST and one bpp. growth shows AC 97th% 02/29/24 (4) Supervision of high-risk : COMMENT: , ROSE 04/23/24, PC: Guillermo, : Johnathan (5) Anxiety: (6) Chronic hypertension affecting : COMMENT: on nifedipine (7) Abnormal EKG: COMMENT: normal echo (8) Migraine without aura: QUALIFIERS: Status migrainosus presence: without status migrainosus Intractability: not intractable Qualified Code(s): G43.009 - Migraine without aura, not intractable, without status migrainosus (9) H/O section: COMMENT: x1, Desires rpt csec with sterilization. RLTCS BS scheduled for 04/04 @ 7:15 with SM - POSSIBLE VICRYL ALLERGY. PLEASE ONLY USE MONOCRYL. (10) H/O pre-eclampsia in prior , currently : COMMENT: Taking ASA 81mg (11) Rh negative status during : COMMENT: A-, Will need Rhogam at 28wks (12) : QUALIFIERS: Weeks of gestation: 36 weeks Qualified Code(s): Z 3A.36 - 36 weeks gestation of COMMENT: GBS negative. normal anatomy, NT normal, AFP normal, Discussed genetic/carrier testing - declines Charges/Coding Multi Select Codes Urinary/Genital Urinary/Genital CPT Codes: No Charge
[2024-04-05 09:30] VITALS: BP 146/84; PULSE 98; RESP 16; TEMP 36.8; O2SAT 100
[2024-04-05] MEDS: Senna/Docusate Sodium 1 Tablet PO (09:42)
[2024-04-05] MEDS: NIFEdipine 60 MG Tablet PO (09:42)
[2024-04-05] MEDS: oxyCODONE 5 MG Tablet PO ×3 (09:58→21:26)
[2024-04-05 11:46] LABS: Pathology Specimen OB SEE PATHOLOGY REPORT
--- NOTE | 2024-04-05 13:34 | CASEMGMT ---
Social Work Assessment Labor and Delivery Unit Patient Address: [place] [address] Phone number: [phone] Date of Referral: 04/04/24 Time of Referral:? 0546 Referred By: Dr. Romero Date of Intervention: ?04/05/24 Time of Intervention:? 1245 Reason for Referral:? maternal father is an addict/ alcoholic Sw completed chart review and acknowledges social work consult. Sw presented to bedside and introduced self to mother of baby, LEVI- Tatiana and father of baby, BILL- Johnathan. Sw explained reason for sw involvement and completed psychosocial assessment. History obtained from: medical records, MOB and FOB. Household composition: Currently residing in the family home is BILL SIMS, their 5 year old son, Guillermo and baby when ready for discharge. Parents report that they moved from [place] to [place], and that was a good move, but they recently moved back to [place] to help paternal grandma as she navigated some health problems. LEVI states that they are now moving to [place] for BILL's job and they are excited about that. Parents deny any problems or concerns with their housing. Patient's parent/guardian status:? LEVI and BILL have been together for 10 years after meeting online. baby is second baby for both parents. NO concerns reported of domestic violence or intimate partner violence. ? Medical History: LEVI is 28 year old female who is 2, para 1- now 2 following labor and delivery of . LEVI received routine care during with [facility]. LEVI presented to hospital for scheduled repeat . LEVI delivered baby at 37 weeks gestation on 04/04/24. Baby girl, named Chacho Bartholomew, was born weighing 7lb 9oz with apgars of 9 and 9 at one and five minutes of life, respectfully. Baby will be followed by a change management administrator in [place] when family moves. LEVI is bottle feeding. ? Educational Status:?Both parents graduated from high school. Financial Status: BILL is employed outside of the home working for [employer]. MOB is a stay at home mom Supplies: All necessary baby supplies obtained, including: car seat, safe sleep space, clothes, diapers and wipes. Childcare/Caregiver(s):MOB will be the primary caregiver to baby. Paternal grandma helping with their older son while parents are at the hospital. Transportation:?? Both parents have their drivers license and reliable means of transportation, no barriers. Programs/Agencies Involved: ??LEVI is connected to insurance through [employer] as well as SNAP and WIC. ? Children Services/Legal Issues:??? No history of children services involvement, no issues or concerns warranting referral to be made at this time. Behavioral Health Issues: ??Mental Health History:?BILL states that he has been diagnosed with manic depression disorder and BiPolar. BILL states that he tried to use medication but it made his symptoms worse. BILL states that he has utilized healthy and safe coping mechanisms for the past four years and is happy to state that his symptoms are managed without medication. BILL reports that LEVI is his biggest support person and having her tell him to talk to her and giving him that safe space has really helped him. LEVI states that she has anxiety and is prescribed Lexapro. MOB states that she call tell a difference with the medication. LEVI states that she is not sure if she struggled with any symptoms after her son was born, if she did it was mostly hormonally related and did not last long. ?? Substance Use History:?Parents deny any substance use prior to and during . ? Family History:?LEVI states that her father has history of addiction and alcoholism, but is now sober. Sw educated MOB on importance of being aware of her genetic disposition and to use healthy and safe coping mechanisms opposed to seeking comfort from drugs or alcohol. MOB expressed understanding. ? Drug Screens: No drug screens observed in chart review. Family/Social Stressors:? Parents deny any issues, concerns or stressors at this time. Support Systems: LEVI states that BILL and her brother in law and sister in law are her biggest supports. Depression/Shaken Baby/Safe Sleeping: Sw educated parents on signs and symptoms of baby blues and mood and anxiety disorders to be mindful of. Parents express understanding. LEVI states that if she were to struggle during this period BILL would be able to recognize that and would know how to help and support her. LEVI denies feeling sad, depressed, anxious or on edge. MOB states that she feels a connection and arriaga with baby. Sw educated parents on shaken baby prevention and ABCs of safe sleep. Parents express understanding. ASSESSMENT:? MOB and baby admitted following labor and deliery. MOB observed being comfortably in bed and FOB holding baby lovingly and appropriately. Parents happy baby is here. Both parents talked and engaged appropriately during completion of psychosocial assessment. Parents have obtained everything they need for baby and have natural supports where [facility] are [facility] [place]. Parents both with mental health history, symptoms well mantained and managed. Both parents receptive to mental health supports and providers if warranted. PLAN:?? No other services requested or indicated. MOB and baby to be discharged when medically ready. Parents were provided literature regarding: signs and symptoms of baby blues and mood and anxiety disorders, Help Me Grow, shaken baby prevention, ABCs of safe sleep and a list of county resources that are available for them should any needs present themselves. Lyle Bullock, MATERIAL COMBINER, HUMAN RESOURCES OFFICE ASSISTANT
[2024-04-05 13:52] VITALS: BP 136/80; PULSE 69; RESP 16; TEMP 36.9; O2SAT 97
[2024-04-05 19:45] VITALS: BP 142/83; PULSE 74; RESP 16; TEMP 36.6; O2SAT 99
[2024-04-05] MEDS: Enoxaparin 40 MG/0.4 ML Syringe SC (19:49)
[2024-04-05] MEDS: Escitalopram Oxalate 10 MG Tablet PO (21:26)
[2024-04-05] MEDS: Magnesium Chloride 64 MG Delay Rel.Tablet 128 MG PO (21:59)
[2024-04-06] MEDS: Acetaminophen 500 MG Tablet 1000 MG PO ×2 (00:36→06:52)
[2024-04-06 02:45] VITALS: BP 119/79; PULSE 90; RESP 16; TEMP 36.6; O2SAT 99
[2024-04-06] MEDS: Naproxen 500 MG Tablet PO (02:45)
[2024-04-06 08:31] VITALS: BP 136/88; PULSE 82; RESP 14; TEMP 37.2; O2SAT 100
--- NOTE | 2024-04-06 08:46 | PCM.PN.OB ---
Subjective Subjective Patient doing well without complaints. Tolerating PO. Ambulating and voiding without difficulty. Feeding well. Denies chest pain, shortness of breath, calf pain/swelling, fevers, chills, lightheadedness. Objective Data Objective Data Vital Signs: Vital Signs Temp Pulse Resp BP Pulse Ox O2 Del Method 99.0 F 82 14 136/88 H 100 Room Air 04/06/24 08:31 04/06/24 08:31 04/06/24 08:31 04/06/24 08:31 04/06/24 08:31 04/06/24 08:31 Oxygen Delivery Method Room Air Weight: 209 lb 12.8 oz Body Mass Index (BMI) 39.6 Intake & Output: Intake and Output for Last 24 Hours 04/04/24 04/05/24 04/06/24 23:59 23:59 23:59 Intake Total 3845 / 3845 Output Total 2500 / 2500 Balance 1345 / 1345 Lab / Micro Data 04/05/24 06:38 ROS Constitutional Constitutional: Reports systems reviewed and no addt'l complaints, except as documented; Denies anorexia or headache(s) Cardiovascular Cardiovascular: Reports systems reviewed and no addt'l complaints, except as documented; Denies dizziness, dyspnea, nausea or tachypnea Respiratory/Chest Respiratory/Chest: Reports systems reviewed and no addt'l complaints, except as documented; Denies cough, dyspnea, shortness of breath at rest or tachypnea Gastrointestinal Gastrointestinal: Reports systems reviewed and no addt'l complaints, except as documented; Denies abdominal pain, constipation or nausea Genitourinary Genitourinary: Reports systems reviewed and no addt'l complaints, except as documented; Denies burning urination, difficulty urinating, dysuria, urinary frequency or urinary incontinence Musculoskeletal Musculoskeletal: Reports systems reviewed and no addt'l complaints, except as documented Integumentary Integumentary: Reports systems reviewed and no addt'l complaints, except as documented Neurologic Neurologic: Reports systems reviewed and no addt'l complaints, except as documented; Denies abnormal speech, dizziness or headache(s) Psychiatric Psychiatric: Reports systems reviewed and no addt'l complaints, except as documented Endocrine Endocrinology: Reports systems reviewed and no addt'l complaints, except as documented Hematologic/Lymphatic Hematologic/Lymphatic: Reports systems reviewed and no addt'l complaints, except as documented Physical Exam Const alert, oriented x3 and no apparent distress Neck full ROM Resp normal respiratory effort, normal air movement and no retractions Effort and Inspection: able to speak in complete sentences and symmetric chest movement GI soft to palpation Inspection: incision intact Bladder / Kidney Exam: bladder normal to palpation Uterus Palpation: uterus fundus firm Extremity normal to inspection and full ROM Psych mental status grossly normal, thought process normal and cooperative Assessment & Plan (1) delivery delivered: COMMENT: RLTCS chtn pree SM 37 PLAN: s/p LTCS PPD # 2 1. routine post care 2. breast feeding- support given 3. rh positive 4. rubella immune 5. Discharge home (2) Pre-eclampsia added to pre-existing hypertension: (3) Migraine without aura: QUALIFIERS: Status migrainosus presence: without status migrainosus Intractability: not intractable Qualified Code(s): G43.009 - Migraine without aura, not intractable, without status migrainosus (4) Abnormal EKG: COMMENT: normal echo (5) Anxiety: Charges/Coding Multi Select Codes Urinary/Genital Urinary/Genital CPT Codes: No Charge
[2024-04-06] MEDS: oxyCODONE 5 MG Tablet PO (10:21)
[2024-04-06] MEDS: NIFEdipine 60 MG Tablet PO (10:22)
== END 2024-04-06 11:25 | disposition home or self-care (01) | DRG 539 ==
PROVIDERS: Admitting Provider Obstetrics & Gynecology; PCP Family Medicine; Referring Provider Obstetrics & Gynecology; Visit Provider Obstetrics & Gynecology
PROC: 10D00Z1 Extraction of Products of Conception, Low, Open Approach (ICD-10-PCS; CPT 59514; principal; 2024-04-04 07:00)
DX: O11.4 Pre-existing hypertension with pre-eclampsia, complicating childbirth (principal); O99.354 Diseases of the nervous system complicating childbirth; O99.214 Obesity complicating childbirth; G43.009 Migraine without aura, not intractable, without status migrainosus; F41.9 Anxiety disorder, unspecified; O34.211 Maternal care for low transverse scar from previous cesarean delivery; O99.344 Other mental disorders complicating childbirth; O26.893 Other specified pregnancy related conditions, third trimester; Z67.11 Type A blood, Rh negative; Z3A.36 36 weeks gestation of pregnancy; Z37.0 Single live birth; Z79.82 Long term (current) use of aspirin; Z79.899 Other long term (current) drug therapy; Z30.2 Encounter for sterilization
CPT/HCPCS: 59050; 85025; 85027; 86780; 86850; 86900; 86901; 88302; A4216; J2405

== ENCOUNTER → 2024-05-17 | Outpatient (CLI) | payer MEDICAID, SELFPAY ==
[2024-05-17 12:13] LABS: Absolute Lymphocyte Count 2.94 X10^3/uL (0.83-4.51); Absolute Neutrophil Count 5.1 X10^3/uL (2.0-7.7); Basophil# 0.03 X10^3/uL; Basophil% 0.3 % (0-1); Eosinophil# 0.19 X10^3/uL; Eosinophils% 2.2 % (0-5); Hematocrit 40.5 % (37-47); Lymphocyte # 2.94 X10^3/ul (0.83-4.51); Lymphocyte % 33.5 % (19-41); Mean Corp Hgb Conc 32.1 g/dL (32-36); Mean Corpuscular Hgb 25.7 pg (27.0-32.0); Mean Corpuscular Volume 80.2 fL (81-99); Mean Platelet Vol. 11.4 fl (6.2-12.0); Monocyte# 0.48 X10^3/uL; Monocyte% 5.5 % (0-10); NRBC Flagged by Analyzer 0 % (0-5); Neutrophil % 58.2 % (47-70); Platelet Count 277 K/mm3 (150-450); RBC Distribution Width CV 15.2 % (11.6-14.6); RBC Distribution Width SD 44.4 fl (35.1-43.9); Red Blood Count 5.05 M/mm3 (4.2-5.4); White Blood Count 8.8 K/mm3 (4.4-11.0)
[2024-05-17 13:20] LABS: hCG Titer Quant., Serum < 1 mIU/mL (<9 non-preg)
== END | disposition home or self-care (01) ==
PROVIDERS: PCP Family Medicine; Referring Provider Obstetrics & Gynecology; Visit Provider Obstetrics & Gynecology
DX: O72.1 Other immediate postpartum hemorrhage (principal)
CPT/HCPCS: 84443; 84702; 85025